=== PATIENT | male | born 1995 | race Caucasian/White ===

== ENCOUNTER 2017-02-05 11:07 | Emergency (ER) | payer SELFPAY ==
[2017-02-05 11:09] VITALS: RESP 18
--- NOTE | 2017-02-05 11:55 | C.PDOC ---
History Of Present Illness 21 year old male with no significant PMHx presents to the ED with complaints of bright red blood in stool following bowel movement 1 hr prior to arrival. Patient admits to suffering from constipation. Otherwise, patient denies fever, chills, recent illness or abx use, CP, SOB, dyspnea, abdominal pain, nausea, vomiting, diarrhea, back pain, UTI sx, denies history of recent surgeries, or other complaints at this time. Ambulate to ED for evaluation, not in nay apparent distress. Time Seen by Provider: 02/05/17 11:10 Chief Complaint (Nursing): GI Problem History Per: Patient History/Exam Limitations: no limitations Onset/Duration Of Symptoms: Hrs (1 hr prior to arrival) Current Symptoms Are (Timing): Still Present Recent travel outside of the [place]: No Past Medical History Reviewed: Historical Data, Nursing Documentation, Vital Signs Vital Signs: Last Vital Signs Temp 97.8 F 02/05/17 12:09 Pulse 61 02/05/17 12:09 Resp 18 02/05/17 12:09 BP 141/87 02/05/17 12:09 Pulse Ox 98 02/05/17 12:54 - Medical History PMH: Asthma Family History: States: Unknown Family Hx - Social History Hx Tobacco Use: No Hx Alcohol Use: No Hx Substance Use: No - Immunization History Hx Tetanus Toxoid Vaccination: No Hx Influenza Vaccination: No Hx Pneumococcal Vaccination: No Review Of Systems Constitutional: Negative for: Fever, Chills Cardiovascular: Negative for: Chest Pain, Palpitations Respiratory: Negative for: Cough, Shortness of Breath Gastrointestinal: Positive for: Other (blood in stool). Negative for: Nausea, Vomiting, Abdominal Pain, Diarrhea Physical Exam - Physical Exam Appears: Well, Non-toxic, No Acute Distress Skin: Normal Color, Warm, Dry, No Rash Eye(s): bilateral: PERRL Nose: No Flaring Neck: Supple Cardiovascular: Rhythm Regular Respiratory: No Decreased Breath Sounds, No Accessory Muscle Use, No Rales, No Rhonchi, No Stridor, No Wheezing Gastrointestinal/Abdominal: Soft, No Tenderness, No Distention, No Guarding, No Rebound Rectal: Rectal Tone (normal), Heme Negative, No Melena, Hemorrhoids (internal, small), No Tenderness Back: No CVA Tenderness Extremity: No Pedal Edema, No Deformity, No Swelling Neurological/Psych: Oriented x3, Normal Speech ED Course And Treatment O2 Sat by Pulse Oximetry: 98 (RA) Pulse Ox Interpretation: Normal Progress Note: On re-evaluation, pt reports mild improvement in sx. Afebrile, hemodynamicaly stable. NOn-toxic. PusleOx 98% RA. ENT: no acute findings. Neck: SUpple, (-) meningeal sign. Lungs: CTA B/L, BS equal B/L. CVS: (+)S1S2, reg. Abd: Benign, (-) guarding, (-) rebound. Back: (-) CVA tenderness. Rectal : (+) exam c/w small internal hemorrhoids. Pt advised on course of ds. ref. to F/u with PMD, SUrgery in 2-3 days for re-eavl. return to ED if any worsening or new changes. Disposition Counseled Patient/Family Regarding: Diagnosis, Need For Followup, Rx Given - Disposition Referrals: [facility] [Outside] Disposition: HOME/ ROUTINE Disposition Time: 11:45 Condition: STABLE Additional Instructions: ENCOURAGE FLUIDS TAKE MEDICATION FOR CONSTIPATION NEED FOLLOW UP WITH PMD, GI, SURGERY NEED FOR FURTHER EVALUATION AND TREATMENT. RETURN TO ED IF ANY WORSENING OR NEW CHANGES. 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 - Scribe Statement The provider has reviewed the documentation as recorded by the Scriborquidea Robison All medical record entries made by the Naimaiborquidea were at my direction and personally dictated by me. I have reviewed the chart and agree that the record accurately reflects my personal performance of the history, physical exam, medical decision making, and the department course for this patient. I have also personally directed, reviewed, and agree with the discharge instructions and disposition.
[2017-02-05 12:17] VITALS: BP 141/87; PULSE 61; TEMP 97.8
[2017-02-05 12:54] VITALS: O2SAT 98
== END 2017-02-05 12:18 | disposition home or self-care (01) ==
LOC: C.ER 11:07
DX: K64.9 Unspecified hemorrhoids (principal)